=== PATIENT | male | born 1990 | race Caucasian/White ===

== ENCOUNTER 2017-01-24 12:17 | Emergency (ER) | payer SELFPAY ==
[2017-01-24] MEDS ORDERED: LIDO:MAALOX 1:1 20 ML SINGLE DOSE ONE (12:40)
[2017-01-24] MEDS ORDERED: FAMO40TA4 PO (12:42)
--- NOTE | 2017-01-24 12:51 | ED.ADGEN ---
Past History Past Medical History: No Pertinent History Past Surgical History: No Surgical History Alcohol Use: Occasionally Drug Use: None Adult General HPI HPI Patient is a 6-year-old man, with no significant past medical history, who presents to the emergency department with complaint of epigastric and left upper abdominal pain, associated with belching, radiation up into the chest, and sore throat over the past 4 days. Patient states pain is pressure-like, and he will feel it move and a burning sensation up his throat, states it is worse when he lies down at night and when he gets up in the morning. Described as a cramping and burning sensation, states he does wake in the morning with a bad taste in his mouth. He states however that it does occur all day, does not appear to be affected by eating or drinking. He describes his diet is "okay". He denies any shortness of breath, or other chest pain, denies any weakness, numbness, tingling, rashes, fevers, chills, rhinorrhea, ear pain, headache, sick contacts or exposures. Denies any ingestions, no drug or alcohol use, he does smoke about half a pack of cigarettes daily. Denies any injuries. Patient is not experiencing any discomfort currently. Review of Systems Review of Systems Constitutional: Denies fever or chills [] Eyes: Denies change in visual acuity, redness, or eye pain [] HENT: Denies nasal congestion or sore throat [] Respiratory: Denies cough or shortness of breath [] Cardiovascular: No additional information not addressed in HPI [] GI: Denies nausea, vomiting, bloody stools or diarrhea. Epigastric and lower quadrant abdominal pain associated with sore throat, occasional belching, and "water brash". [] : Denies dysuria or hematuria [] Musculoskeletal: Denies back pain or joint pain [] Integument: Denies rash or skin lesions [] Neurologic: Denies headache, focal weakness or sensory changes [] Endocrine: Denies polyuria or polydipsia [] Current Medications Current Medications Current Medications Medications (Trade) Dose Ordered Sig/Yarelis Start Time Stop Time Status Last Admin Dose Admin Multi-Ingredient Mouthwash/Gargle (Gi Cocktail) 20 ml STK-MED ONCE 01/24/17 12:40 01/24/17 12:41 DC Allergies Allergies Allergies Coded Allergies Type Severity Reaction Last Updated Verified No Known Drug Allergies 07/03/14 No Physical Exam Physical Exam Constitutional: Well developed, well nourished, no acute distress, non-toxic appearance. [] HENT: Normocephalic, atraumatic, bilateral external ears normal, oropharynx moist, patient with mildly injected oropharynx, no lesions, mucosa is otherwise unremarkable, no oral exudates, nose normal. [] Eyes: PERRLA, EOMI, conjunctiva normal, no discharge. [] Neck: Normal range of motion, no tenderness, supple, no stridor. [] Cardiovascular:Heart rate regular rhythm, no murmur, S1, S2, rubs or gallops. [] Lungs & Thorax: Bilateral breath sounds clear to auscultation, no wheezing, rhonchi, rales. No chest wall crepitus or tenderness. [] Abdomen: Bowel sounds normal, soft, mild tenderness to palpation in the epigastric region, patient localizes pain in this area, negative Yadav sign, no right upper quadrant or lower quadrant tenderness, no rebound, rigidity, no guarding, no masses, no pulsatile masses. [] Skin: Warm, dry, no erythema, no rash. [] Back: No tenderness, no CVA tenderness. [] Extremities: No tenderness, no cyanosis, no clubbing, ROM intact, no edema. [] Neurologic: Alert and oriented X 3, normal motor function, normal sensory function, no focal deficits noted. [] Psychologic: Affect normal, judgement normal, mood normal. [] Current Patient Data Vital Signs Vital Signs Date Time Temp Pulse Resp B/P (MAP) Pulse Ox O2 Delivery O2 Flow Rate FiO2 01/24/17 12:20 98.3 64 16 96 Room Air Lab Results Laboratory Tests Test 01/24/17 12:45 Group A Streptococcus Rapid Negative (NEGATIVE) EKG EKG EC: Sinus rhythm, heart rate 60 beats/minute, left axis deviation, QTC of 354, ME of 134, QRS of 88, contours are consistent with age and body habitus , no ST elevations or depressions, no prior for comparison, as interpreted by me.[] Radiology/Procedures Radiology/Procedures Acute abdominal series: 3 view: Normal cardiopulmonary silhouette, no infiltrates, no effusions, no pneumothorax, no soft tissue or bony abnormality is identified. No free air. Patient was stool and bowel gas throughout, no air- fluid levels, no dilatation or evidence of obstruction. As interpreted by me. Course & Med Decision Making Course & Med Decision Making Pertinent Labs and Imaging studies reviewed. (See chart for details) Patient's history and examination is consistent with gastroesophageal reflux disease, including symptoms of water brash and esophagitis. I did discuss this with patient, he is concerned about strep throat, so we did obtain a strep swab although there is no evidence of bacterial infection. ECG also obtained due to patient's complaint of burning chest pain, which not reveal any acutely concerning findings. Patient was treated with a GI cocktail in the emergency department. On reevaluation, patient states that he is feeling better, strep throat was negative, imaging unremarkable, ECG none concerning, I reiterated with the patient that his evaluation is consistent with GERD esophagitis. Patient given dietary instructions also prescription for famotidine, also given a list of available providers in the area to establish general medical care and follow-up. We did discuss concerning symptoms that would prompt return, patient voices understanding and agreement with discharge instructions, plan and precautions. Patient discharged home in stable condition with plan as above. Final Impression Final Impression [] Problems: Dragon Disclaimer Dragon Disclaimer This electronic medical record was generated, in whole or in part, using a voice recognition dictation system. Departure: Impression: Primary Impression: GERD (gastroesophageal reflux disease) Disposition: 01 HOME, SELF-CARE Condition: IMPROVED Scripts Famotidine (FAMOTIDINE) 40 Mg Tablet 1 TAB PO DAILY, #15 TAB 0 Refills Prov: INDIGO OBRIEN DO 01/24/17 INDIGO OBRIEN DO Jan 24, 2017 12:51
[2017-01-24] MEDS ORDERED: LIDO:MAALOX 1:1 20 ML SINGLE DOSE PO ONE (13:00)
[2017-01-24 13:30] VITALS: BP 145/84
--- NOTE | 2017-01-24 13:46 | RAD ---
Chest, 2 views, 01/24/2017: History: Epigastric and chest pain The heart size and pulmonary vascularity are normal. No pulmonary infiltrates are seen. There is no evidence of pleural fluid. IMPRESSION: No acute cardiopulmonary abnormality is detected. Abdomen, 2 views, 01/24/2017: Gas is present in large and small bowel without significant bowel distention. There are a few small scattered air-fluid levels. No free air is seen in the abdomen. There is no evidence of organomegaly or abnormal abdominal calcification. IMPRESSION: 1. Small scattered air-fluid levels may be due to fluid in the colon or a mild ileus. 2. The abdomen is otherwise unremarkable.
--- NOTE | 2017-01-24 16:48 | EKG ---
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
== END 2017-01-24 13:30 | disposition home or self-care (01) ==
LOC: ER 12:17
DX: K21.9 Gastro-esophageal reflux disease without esophagitis (principal)
CPT/HCPCS: 71020; 74020; 87070; 87880; 93005; 99285-25

== ENCOUNTER 2017-03-24 19:24 | Emergency (ER) | payer SELFPAY ==
[~2017-03-24] VITALS: Ht 160 cm; Wt 75.9 kg
[~2017-03-24 19:24] MED LIST: FAMO40TA4 PO
[2017-03-24] MEDS ORDERED: ASPIRIN 81 MG TAB.CHEW PO ONE (20:00)
--- NOTE | 2017-03-24 20:08 | PHYS DOC ---
General Chief Complaint: CHEST PAIN Stated Complaint: cp Time Seen by MD: 19:37 Source: patient, EMS, old records Exam Limitations: no limitations Problems: History of Present Illness Initial Comments Patient is a 26-year-old male brought to the ED by EMS with complaint of chest pain. EMS reports that on arrival they found the patient to be very anxious and hyperventilating with respiratory rate of 30/m. He was complaining of dyspnea and tingling and numbness in his fingers. They gave aspirin en route and caution with breathing and on arrival the extremity symptoms had stopped but the patient is still anxious complaining of chest tightness. Patient states that he's had anterior chest pain for the past 2-3 days. He's had some shortness of breath no nausea vomiting diaphoresis arm or neck symptoms. He has past medical history of GERD and states current symptoms are not similar to prior GERD symptoms. Patient also has reported history of methamphetamine use in the past but he denies any recent use. On arrival the patient has normal heart rate no tachycardia Timing/Duration: other (2-3 days) Severity: moderate (vital HR) Modifying Factors: improves with other Associated Symptoms: chest pain, shortness of breath Allergies: Coded Allergies: No Known Drug Allergies (Unverified , 07/03/14) Past Medical History Medical History: GERD Surgical History: noncontributory Psychosocial History: anxiety Social History Smoker: non-smoker Alcohol: none Drugs: none Review of Systems Constitutional: denies chills, denies diaphoresis, denies fever, denies malaise Respiratory: cough, denies shortness of breath, denies wheezing Cardiovascular: see HPI Gastrointestinal: denies abdominal pain, denies nausea, denies vomiting Musculoskeletal: denies back pain, denies joint swelling, denies neck pain Psychiatric/Neurological: denies headache, denies numbness, denies paresthesia Physical Exam General Appearance: moderate distress (anxious and hyperventilating on arrival) Eyes: bilateral eye normal inspection, bilateral eye PERRL, bilateral eye EOMI Ear, Nose, Throat: hearing grossly normal, normal ENT inspection, normal pharynx Neck: non-tender, supple Respiratory: chest non-tender, normal breath sounds, no respiratory distress Cardiovascular: normal peripheral pulses, regular rate, rhythm Gastrointestinal: non tender, soft Back: no CVA tenderness, no vertebral tenderness Extremities: normal inspection, no calf tenderness 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 Interpreted by Dr. Kumar. Chest AP: No acute cardiopulmonary process interpreted by Dr. Kumar. Potassium 3.3 oral replacement given otherwise ED workup unremarkable. Patient's symptoms resolved very shortly after arrival once he settled down in the exam room. No emergent condition is suspected or noted in the ED patient will be discharged home he is agreeable. Departure Time of Disposition: 21:06 Disposition: 01 HOME, SELF-CARE Diagnosis: hypokalemia, anxiety Condition: IMPROVED Patient Instructions: Anxiety and Panic Attacks, Nydq-mi-Xood, Hypokalemia- Brief Additional Instructions: Please review the patient education materials given by ED staff. Work excuse tomorrow. Increase leafy green vegetables and banana intake. Prescription: KCl 20 mEq quantity 2 Follow-up with a doctor Wednesday for recheck of symptoms and serum potassium. Return to ED with new or changing symptoms. VU KUMAR DO Mar 24, 2017 20:08
[2017-03-24 20:10] LABS: BASO # 0.1 x10^3/uL (0.0-0.2); BASO % 1 % (0-3); EOS # 0.2 x10^3/uL (0.0-0.7); EOS % 3 % (0-3); HEMATOCRIT 47.8 % (39.0-53.0); HEMOGLOBIN 16.7 g/dL (13.0-17.5); LYMPH % 32 % (24-48); MEAN CORPUSCULAR HEMOGLOBIN 33 pg (25-35); MEAN CORPUSCULAR HGB CONC 35 g/dL (31-37); MEAN CORPUSCULAR VOLUME 94 fL (79-100); MONO # 0.5 x10^3/uL (0.0-1.1); MONO % 6 % (0-9); NEUT # 5.5 x10^3uL (1.8-7.7); NEUT % 58 % (31-73); PLATELET COUNT 273 x10^3/uL (140-400); RED BLOOD COUNT 5.12 x10^6/uL (4.30-5.70); RED CELL DISTRIBUTION WIDTH 13.9 % (11.5-14.5); WHITE BLOOD COUNT 9.4 x10^3/uL (4.0-11.0)
[2017-03-24 20:26] LABS: ALBUMIN 4.5 g/dL (3.4-5.0); ALBUMIN/GLOBULIN RATIO 1.2 (1.0-1.7); CALCIUM 9.9 mg/dL (8.5-10.1); GFR 90.3; POTASSIUM 3.3 mmol/L (3.5-5.1); TOTAL BILIRUBIN 0.3 mg/dL (0.2-1.0); TOTAL PROTEIN 8.3 g/dL (6.4-8.2)
[2017-03-24 20:44] LABS: CLARITY,URINE CLEAR; COLOR,URINE STRAW
[2017-03-24 20:45] LABS: BACTERIA,URINE 0 /HPF (0-FEW); BILIRUBIN,URINE NEG (NEG); GLUCOSE,URINE NEG (NEG); NITRITE,URINE NEG (NEG); RBC,URINE 0 /HPF (0-2); SQUAMOUS EPITHELIAL CELL,UR OCC /LPF; UROBILINOGEN,URINE 0.2 mg/dL (0.2 mg/dL); WBC,URINE OCC /HPF (0-4)
[2017-03-24] MEDS ORDERED: POTASSIUM CHLORIDE 20 MEQ/15 ML ORAL LIQUID. PO ONE (20:45)
[2017-03-24 20:57] LABS: BARBITURATES NEG (NEG); BENZODIAZEPINES NEG (NEG); CANNABINOIDS NEG (NEG); COCAINE NEG (NEG); METHADONE NEG (NEG); OPIATES NEG (NEG); PHENCYCLIDINE NEG (NEG)
[2017-03-24 20:58] LABS: AMPHETAMINE/METHAMPHETAMINE NEG (NEG)
[2017-03-24] MEDS ORDERED: POTA20TA82 PO (21:08)
[2017-03-24 21:14] VITALS: BP 117/48
--- NOTE | 2017-03-24 22:16 | EKG ---
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
--- NOTE | 2017-03-25 07:18 | RAD ---
Portable AP view CXR: Clinical indications: Chest pain tonight. Comparison: January 24, 2017 Findings: No acute lung infiltrate or pleural effusion or pulmonary edema or lung mass or pneumothorax is seen. The heart size, pulmonary vasculature, mediastinum and both hamilton are unremarkable. Impression: No acute radiographic abnormality is seen.
== END 2017-03-24 21:25 | disposition home or self-care (01) ==
LOC: ER 19:24
DX: F41.9 Anxiety disorder, unspecified (principal); E87.6 Hypokalemia; K21.9 Gastro-esophageal reflux disease without esophagitis
CPT/HCPCS: 36415; 71010; 80053; 80307; 81001; 82550; 84484; 85025; 93005; 99285-25; G0479

== ENCOUNTER 2017-03-30 19:27 | Emergency (ER) | payer SELFPAY ==
[~2017-03-30] VITALS: Ht 160 cm; Wt 75.9 kg
[~2017-03-30 19:27] MED LIST changes: +POTA20TA82 PO
[2017-03-30] MEDS ORDERED: KETOROLAC 30 MG/ML VIAL. IV ONE (20:15)
[2017-03-30] MEDS ORDERED: IOHEXOL 300 MG/ML 75 ML VIAL. IV ONE (20:15)
[2017-03-30 20:52] LABS: BASO # 0.1 x10^3/uL (0.0-0.2); BASO % 1 % (0-3); EOS # 0.1 x10^3/uL (0.0-0.7); EOS % 1 % (0-3); HEMATOCRIT 44.4 % (39.0-53.0); HEMOGLOBIN 15.3 g/dL (13.0-17.5); LYMPH # 2.7 x10^3/uL (1.0-4.8); LYMPH % 28 % (24-48); MEAN CORPUSCULAR HEMOGLOBIN 32 pg (25-35); MEAN CORPUSCULAR HGB CONC 35 g/dL (31-37); MEAN CORPUSCULAR VOLUME 94 fL (79-100); MONO # 0.5 x10^3/uL (0.0-1.1); MONO % 5 % (0-9); NEUT # 6.4 x10^3uL (1.8-7.7); NEUT % 65 % (31-73); PLATELET COUNT 253 x10^3/uL (140-400); RED BLOOD COUNT 4.74 x10^6/uL (4.30-5.70); RED CELL DISTRIBUTION WIDTH 13.6 % (11.5-14.5); WHITE BLOOD COUNT 9.8 x10^3/uL (4.0-11.0)
[2017-03-30 21:02] LABS: ALBUMIN 4.2 g/dL (3.4-5.0); ALBUMIN/GLOBULIN RATIO 1.2 (1.0-1.7); CALCIUM 8.9 mg/dL (8.5-10.1); GFR 90.3; POTASSIUM 3.8 mmol/L (3.5-5.1); TOTAL BILIRUBIN 0.3 mg/dL (0.2-1.0); TOTAL PROTEIN 7.7 g/dL (6.4-8.2)
--- NOTE | 2017-03-30 21:03 | RAD ---
CT ABD PELV W/ IV CONTRST ONLY dated 03/30/2017 8:37 PM Indication: Left upper quadrant pain.Gave Omni 300 75ml IV - tolerated well
LUQ abdominal pain
No abdominal sx in past and no prior medical hx. Comparison: No comparison is available. Technique: Contiguous axial imaging of the abdomen and pelvis performed after the administration of 75 cc Omnipaque 300. One or more of the following individualized dose reduction techniques were utilized for this examination: 1. Automated exposure control 2. Adjustment of the mA and/or kV according to patient size 3. Use of iterative reconstruction technique Findings: Limited images of lung bases are clear. Heart size within normal limits. No pleural or pericardial effusion. There is a vague low-density focus within the right lobe liver on image 6 that measures about 7 mm in size, indeterminate. Liver is otherwise homogeneous. No biliary ductal dilatation. Gallbladder unremarkable. Spleen is normal in size. Pancreas, adrenal glands and kidneys are unremarkable. No hydronephrosis. Unopacified GI tract is normal in caliber and contour. No focal bowel wall thickening. The appendix is normal in caliber. No ascites or lymphadenopathy. There are a few scattered diverticula within the distal colon. Images of pelvis show nondistended urinary bladder. Prostate gland normal in size. No free pelvic fluid or pelvic lymphadenopathy. Bone windows show no acute findings. IMPRESSION: 1. No acute abnormality of abdomen or pelvis. Normal appendix. 2. Small vague low-density lesion within the right lobe liver, indeterminate. 3. Diverticulosis with no evidence of acute diverticulitis. Electronically signed by: Umer Hernandez MD (03/30/2017 8:59 PM) [facility]
[2017-03-30 22:00] LABS: BACTERIA,URINE 0 /HPF (0-FEW); BILIRUBIN,URINE NEG (NEG); CLARITY,URINE CLEAR; COLOR,URINE YELLOW; GLUCOSE,URINE NEG (NEG); NITRITE,URINE NEG (NEG); RBC,URINE RARE /HPF (0-2); UROBILINOGEN,URINE 1 mg/dL (0.2 mg/dL); WBC,URINE RARE /HPF (0-4)
[2017-03-30 22:01] LABS: SQUAMOUS EPITHELIAL CELL,UR OCC /LPF
--- NOTE | 2017-03-30 22:03 | PHYS DOC ---
Past History Past Medical History: GERD Past Surgical History: Other Alcohol Use: Occasionally Drug Use: None Adult General Chief Complaint Chief Complaint: ABDOMINAL PAIN HPI HPI 86-year-old male with a history of gastroesophageal reflux now complaining of abdominal pain times several days. Patient has no history of chronic abdominal problems. He has no vomiting but does report some loose stool. No fevers chills sweats or shaking chills. The pain is intermittent with complete resolution between episodes. It's not worse with movement area normal bladder habits Review of Systems Review of Systems Constitutional: Denies fever or chills [] Eyes: Denies change in visual acuity, redness, or eye pain [] HENT: Denies nasal congestion or sore throat [] Respiratory: Denies cough or shortness of breath [] Cardiovascular: No additional information not addressed in HPI [] GI: Denies abdominal pain, nausea, vomiting, bloody stools or diarrhea [] : Denies dysuria or hematuria [] Musculoskeletal: Denies back pain or joint pain [] Integument: Denies rash or skin lesions [] Neurologic: Denies headache, focal weakness or sensory changes [] Endocrine: Denies polyuria or polydipsia [] All other systems were reviewed and found to be within normal limits, except as documented in this note. Current Medications Current Medications Current Medications Medications (Trade) Dose Ordered Sig/Yarelis Start Time Stop Time Status Last Admin Dose Admin Iohexol (Omnipaque 300 Mg/ml) 75 ml 1X ONCE 03/30/17 20:15 03/30/17 20:16 DC 03/30/17 20:35 75 ML Ketorolac Tromethamine (Toradol) 30 mg 1X ONCE 03/30/17 20:15 03/30/17 20:16 DC 03/30/17 21:01 30 MG Allergies Allergies Allergies Coded Allergies Type Severity Reaction Last Updated Verified No Known Drug Allergies 03/30/17 No Physical Exam Physical Exam Constitutional: Well developed, well nourished, no acute distress, non-toxic appearance. [] HENT: Normocephalic, atraumatic, bilateral external ears normal, oropharynx moist, no oral exudates, nose normal. [] Eyes: PERRLA, EOMI, conjunctiva normal, no discharge. [] Neck: Normal range of motion, no tenderness, supple, no stridor. [] Cardiovascular:Heart rate regular rhythm, no murmur [] Lungs & Thorax: Bilateral breath sounds clear to auscultation [] Abdomen: Bowel sounds normal, soft, no tenderness, no masses, no pulsatile masses. [] Skin: Warm, dry, no erythema, no rash. [] Back: No tenderness, no CVA tenderness. [] Extremities: No tenderness, no cyanosis, no clubbing, ROM intact, no edema. [] Neurologic: Alert and oriented X 3, normal motor function, normal sensory function, no focal deficits noted. [] Psychologic: Affect normal, judgement normal, mood normal. [] Current Patient Data Vital Signs Vital Signs Date Time Temp Pulse Resp B/P (MAP) Pulse Ox O2 Delivery O2 Flow Rate FiO2 03/30/17 19:48 98.2 76 20 95 Room Air Lab Results Laboratory Tests Test 03/30/17 20:31 White Blood Count 9.8 x10^3/uL (4.0-11.0) Red Blood Count 4.74 x10^6/uL (4.30-5.70) Hemoglobin 15.3 g/dL (13.0-17.5) Hematocrit 44.4 % (39.0-53.0) Mean Corpuscular Volume 94 fL (79-100) Mean Corpuscular Hemoglobin 32 pg (25-35) Mean Corpuscular Hemoglobin Concent 35 g/dL (31-37) Red Cell Distribution Width 13.6 % (11.5-14.5) Platelet Count 253 x10^3/uL (140-400) Neutrophils (%) (Auto) 65 % (31-73) Lymphocytes (%) (Auto) 28 % (24-48) Monocytes (%) (Auto) 5 % (0-9) Eosinophils (%) (Auto) 1 % (0-3) Basophils (%) (Auto) 1 % (0-3) Neutrophils # (Auto) 6.4 x10^3uL (1.8-7.7) Lymphocytes # (Auto) 2.7 x10^3/uL (1.0-4.8) Monocytes # (Auto) 0.5 x10^3/uL (0.0-1.1) Eosinophils # (Auto) 0.1 x10^3/uL (0.0-0.7) Basophils # (Auto) 0.1 x10^3/uL (0.0-0.2) Sodium Level 141 mmol/L (136-145) Potassium Level 3.8 mmol/L (3.5-5.1) Chloride Level 104 mmol/L (98-107) Carbon Dioxide Level 29 mmol/L (21-32) Anion Gap 8 (6-14) Blood Urea Nitrogen 16 mg/dL (8-26) Creatinine 1.0 mg/dL (0.7-1.3) Estimated GFR (Cockcroft-Gault) 90.3 BUN/Creatinine Ratio 16 (6-20) Glucose Level 89 mg/dL (70-99) Calcium Level 8.9 mg/dL (8.5-10.1) Total Bilirubin 0.3 mg/dL (0.2-1.0) Aspartate Amino Transferase (AST) 15 U/L (15-37) Alanine Aminotransferase (ALT) 29 U/L (16-63) Alkaline Phosphatase 79 U/L (46-116) Total Protein 7.7 g/dL (6.4-8.2) Albumin 4.2 g/dL (3.4-5.0) Albumin/Globulin Ratio 1.2 (1.0-1.7) Lipase 74 U/L (73-393) EKG EKG [] Radiology/Procedures Radiology/Procedures [] Course & Med Decision Making Course & Med Decision Making Pertinent Labs and Imaging studies reviewed. (See chart for details) Well-appearing patient with a benign exam trace left upper quadrant tenderness which is variable. Normal bowel sounds no mass or megaly. Labs unremarkable and CT with incidental findings of vague right liver abnormality possibly consistent with mass as well as diverticulosis. Discussed at length what diverticulosis is and the patient should remember that this is a diagnosis that he has. Regarding right liver mass or possible mass, discussed with patient at length indication for reevaluation by his primary care doctor review with the results and referral for definitive imaging to rule out the less likely possibility of a concerning etiology for the mass including liver cancer. No further workup or treatment indicated at this time patient agrees with outpatient follow-up and strict return precautions given [] Dragon Disclaimer Dragon Disclaimer This electronic medical record was generated, in whole or in part, using a voice recognition dictation system. Departure Departure: Impression: Primary Impression: Abdominal pain Additional Impressions: Diverticulosis Mass of right lobe of liver Disposition: HOME, SELF-CARE Condition: GOOD Referrals: PCP,NO (PCP) Patient Instructions: Abdominal Pain (Nonspecific), Diverticulosis Additional Instructions: It is not clear what the cause of your abdominal pain was today. Your labs were normal. The CAT scan showed no emergency findings. There was an incidental finding of diverticulosis which is a benign condition as we discussed. It is an important diagnosis for you to be aware that you have as there is always the possibility of it developing into diverticulitis, which is an infection or inflammation of a diverticuli. There was also an incidental finding of a vague area in your right lobe of your liver that could represent a mass. It is common for people have benign liver masses but it will require follow-up with your doctor to discuss this finding and arrange reimaging to rule out something more concerning like liver cancer. Follow-up with your doctor in 1-2 days and return immediately for new severe or worsening symptoms. Problem Qualifiers CHRISTOS PAGE MD Mar 30, 2017 22:03
[2017-03-30 22:15] VITALS: BP 103/56
== END 2017-03-30 22:15 | disposition home or self-care (01) ==
LOC: ER 19:27
DX: K57.90 Diverticulosis of intestine, part unspecified, without perforation or abscess without bleeding (principal); R16.0 Hepatomegaly, not elsewhere classified; K21.9 Gastro-esophageal reflux disease without esophagitis
CPT/HCPCS: 36415; 74177; 80053; 81001; 83690; 85025; 96374; 99285; J1885; Q9967

== ENCOUNTER 2017-05-04 18:46 | Emergency (ER) | payer SELFPAY ==
[~2017-05-04] VITALS: Ht 167.6 cm; Wt 79.4 kg
[2017-05-04 18:52] VITALS: BP 139/53
[2017-05-04] MEDS: IBUPROFEN 600 MG TABLET. PO ONE (19:00)
[2017-05-04] MEDS: traMADol 50 MG TABLET PO ONE (20:00)
[2017-05-04] MEDS ORDERED: TRAM-48 PO (20:05)
--- NOTE | 2017-05-04 20:06 | PHYS DOC ---
Past History Past Medical History: Diverticulitis, GERD Past Surgical History: Other Alcohol Use: Occasionally Drug Use: None Adult General Chief Complaint Chief Complaint: FOOT INJURY PAIN HPI HPI Patient is a 26-year-old gentleman who presents here today complaining of pain to his right foot and ankle. 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 Patient denies any acute trauma. Patient reports he was doing fine until he was on his way home when he starts experiencing severe pain to his right foot and ankle. Patient has been taking ibuprofen at home without any significant relief in his discomfort so he came to the ER for further evaluation and assistance with pain. Patient denies any other symptomatology. Patient has any fevers shakes chills nausea vomiting diarrhea chest pain terns of breath cough cold or dysuria. Patient reports she has no past medical history. No hypertension diabetes lung liver or kidney p problems. Patient reports he does smoke, occasional alcohol, no drugs and no known drug allergies. Review of systems: Constitutional: Denies fever or chills Eyes: Denies change in visual acuity, redness, or eye pain HENT: Denies nasal congestion or sore throat Respiratory: Denies cough or shortness of breath All other systems were reviewed and found to be within normal limits, except as documented in this note. Physical exam: Constitutional: Well developed, well nourished, no acute distress, non-toxic appearance. HENT: Normocephalic, atraumatic, bilateral external ears normal, nose normal. Eyes: PERRLA, EOMI, conjunctiva normal, no discharge. Neck: Normal range of motion, no tenderness, supple, no stridor. Cardiovascular: Heart rate regular rhythm, Lungs & Thorax: Bilateral breath sounds clear to auscultation Abdomen: No abdominal distention. Skin: Warm, dry, no erythema, no rash. Back: Normal spinal curvature Extremities:no cyanosis, no clubbing, ROM intact, no edema. Neurologic: Alert and oriented X 3, normal motor function, normal sensory function, no focal deficits noted. Psychologic: Affect normal, judgement normal, mood normal. Patient's ER physical exam was most remarkable: Tenderness to palpation diffusely to his right foot and ankle. There is no deformity visible. There is no soft tissue swelling. Patient's pulses are equal bilaterally and bounding. Patient is excellent capillary refill. Sensation is intact. Motor function is intact. Patient's tenderness palpation with any slight caressing or touching of anywhere in his foot. Foot and ankle x-ray right as interpreted by ER physician reveals: No acute fracture dislocation. No evidence of foreign body. No soft tissue swelling. Labs reviewed: Assessment and plan: 1. 26-year-old gentleman with right foot pain likely secondary to overuse. 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 Patient's x-rays are normal. Patient be discharged home with pain medicines, Vinod wrap, crutches and instructions to rest and elevate. Patient will require note for work. Current Medications Current Medications Current Medications Medications (Trade) Dose Ordered Sig/Yarelis Start Time Stop Time Status Last Admin Dose Admin Ibuprofen (Motrin) 600 mg 1X ONCE 05/04/17 19:00 05/04/17 19:01 DC 05/04/17 19:00 600 MG Allergies Allergies Allergies Coded Allergies Type Severity Reaction Last Updated Verified No Known Drug Allergies 03/30/17 No Current Patient Data Vital Signs Vital Signs Date Time Temp Pulse Resp B/P (MAP) Pulse Ox O2 Delivery O2 Flow Rate FiO2 05/04/17 18:52 97.9 102 18 97 Room Air EKG EKG [] Radiology/Procedures Radiology/Procedures [] Course & Med Decision Making Course & Med Decision Making Pertinent Labs and Imaging studies reviewed. (See chart for details) [] Dragon Disclaimer Dragon Disclaimer This electronic medical record was generated, in whole or in part, using a voice recognition dictation system. Departure Departure: Impression: Primary Impression: Foot pain Additional Impression: Overuse syndrome of foot Disposition: HOME, SELF-CARE Condition: IMPROVED Referrals: PCP,NO (PCP) Patient Instructions: Crutch Use, Foot Sprain Scripts Tramadol Hcl (ULTRAM) 50 Mg Tablet 50 MG PO PRN Q6HRS Y for PAIN, #20 TAB Prov: OLIVIA ROMERO MD 05/04/17 Problem Qualifiers OLIVIA ROMERO MD May 04, 2017 20:06
--- NOTE | 2017-05-05 07:56 | RAD ---
3 views right foot 05/04/2017 8:51 PM Indication: ANKLE AND FOOT PAIN Comparison: None Findings: There is no fracture or dislocation identified. Articular surfaces are uninterrupted. Soft tissues are unremarkable. Impression: No evidence of acute osseous abnormality
--- NOTE | 2017-05-05 08:17 | RAD ---
Three views ANKLE RIGHT 3V Clinical History: ANKLE AND FOOT PAIN Comparison: None. Findings: The visualized osseous structures appear normal. Impression: No acute findings.
== END 2017-05-04 18:52 | disposition home or self-care (01) ==
LOC: ER 18:46
DX: M70.871 Other soft tissue disorders related to use, overuse and pressure, right ankle and foot (principal); Y93.89 Activity, other specified; K21.9 Gastro-esophageal reflux disease without esophagitis
CPT/HCPCS: 73610; 73630; 99284

== ENCOUNTER 2018-02-18 00:25 | Emergency (ER) | payer SELFPAY ==
[~2018-02-18] VITALS: Ht 157.5 cm; Wt 78.3 kg
[~2018-02-18 00:25] MED LIST changes: +TRAM-48 PO
--- NOTE | 2018-02-18 00:32 | ED.ADGEN ---
Past History Past Medical History: Asthma, Diverticulitis, GERD Past Surgical History: Other Alcohol Use: Occasionally Drug Use: None Adult General Chief Complaint Chief Complaint ".. I was walking home from work and got this bad chest pain.... right here in the center.. I ve had it about 40 minutes now.. " HPI HPI Patient is a 27 year old male who presents with above hx and complaints of epigastric and central chest pain. Pt. complaints of some wheezing tonight. Pt pain is non-radiating. Pt. did drink two beers tonight. Has hx GERD, diverticulitis and Asthma. Does smoke. No hx travel or specific ill contacts. Pt denies illicit drug use. No prior cardiac hx. Pt. does not follow with a primary care. Pt. works at [employer] Patient did receive aspirin by paramedics prior to arrival. Pt. seen in ED on 07/03/2014, 03/24/17, , with EKGs.. No acute changes as comparison to prior EKG's. Review of Systems Review of Systems Constitutional: Denies fever or chills [] Eyes: Denies change in visual acuity, redness, or eye pain [] HENT: Denies nasal congestion or sore throat [] Respiratory: Denies cough or shortness of breath [] Cardiovascular: No additional information not addressed in HPI [] GI: Denies abdominal pain, nausea, vomiting, bloody stools or diarrhea [] : Denies dysuria or hematuria [] Musculoskeletal: Denies back pain or joint pain [] Integument: Denies rash or skin lesions [] Neurologic: Denies headache, focal weakness or sensory changes [] Endocrine: Denies polyuria or polydipsia [] All other systems were reviewed and found to be within normal limits, except as documented in this note. Family History Family History Cardiac history unknown family members because he is adopted Current Medications Current Medications Current Medications Medications (Trade) Dose Ordered Sig/Yarelis Start Time Stop Time Status Last Admin Dose Admin Albuterol Sulfate (Ventolin Hfa Inhaler) 2 puff 1X ONCE 02/18/18 01:00 02/18/18 01:01 DC 02/18/18 01:03 2 PUFF Famotidine (Pepcid) 20 mg 1X ONCE 02/18/18 01:00 02/18/18 01:01 DC 02/18/18 01:00 20 MG Folic Acid (FOLIC ACID SYRINGE for ER) 5 mg STK-MED ONCE 02/18/18 00:53 02/18/18 00:54 DC Magnesium Hydroxide (Milk Of Magnesia) 2,400 mg 1X ONCE 02/18/18 01:00 02/18/18 01:01 DC 02/18/18 01:03 2,400 MG Multivitamins/ Minerals (Infuvite Adult) 10 ml STK-MED ONCE 02/18/18 00:53 02/18/18 00:54 DC Multivitamins/ Minerals 10 ml/ Folic Acid 1 mg/ Thiamine HCl 100 mg/Lactated Ringer's 1,011.2 ml @ 1,011.2 mls/hr 1X ONCE 02/18/18 01:00 02/18/18 01:59 DC 02/18/18 01:05 1,011.2 MLS/HR Thiamine HCl (Thiamine Vial) 200 mg STK-MED ONCE 02/18/18 00:53 02/18/18 00:54 DC See nursing for home meds Allergies Allergies Allergies Coded Allergies Type Severity Reaction Last Updated Verified No Known Drug Allergies 03/30/17 No Physical Exam Physical Exam Constitutional: Moderate distress, non-toxic appearance. [] HENT: Normocephalic, atraumatic, bilateral external ears normal, oropharynx moist, no oral exudates, nose normal. []Well trimmed wong. Eyes: PERRLA, EOMI, conjunctiva normal, no discharge. [] Neck: Normal range of motion, no tenderness, supple, no stridor. [] Cardiovascular: Tachycardia Heart rate regular rhythm, no murmur [] Lungs & Thorax: Bilateral breath sounds equal at apexes scattered wheezes auscultation [Has]some sternal tenderness on palpation Abdomen: Bowel sounds normal, soft, no tenderness, no masses, no pulsatile masses. [] Skin: Warm, dry, no erythema, no rash. [] Back: No tenderness, no CVA tenderness. [] Extremities: No tenderness, no cyanosis, no clubbing, ROM intact, no edema. [] No cording noted. Neurologic: Alert and oriented X 3, normal motor function, normal sensory function, no focal deficits noted. [] Psychologic: Affect anxious, judgement normal, mood normal. [] Current Patient Data Vital Signs Vital Signs Date Time Temp Pulse Resp B/P (MAP) Pulse Ox O2 Delivery O2 Flow Rate FiO2 02/18/18 03:33 72 17 114/47 (69) 95 Room Air 02/18/18 00:25 98.8 Lab Results Laboratory Tests Test 02/18/18 00:37 02/18/18 01:58 02/18/18 02:56 White Blood Count 6.9 x10^3/uL (4.0-11.0) Red Blood Count 4.89 x10^6/uL (4.30-5.70) Hemoglobin 15.8 g/dL (13.0-17.5) Hematocrit 46.1 % (39.0-53.0) Mean Corpuscular Volume 95 fL (79-100) Mean Corpuscular Hemoglobin 32 pg (25-35) Mean Corpuscular Hemoglobin Concent 34 g/dL (31-37) Red Cell Distribution Width 13.5 % (11.5-14.5) Platelet Count 246 x10^3/uL (140-400) Neutrophils (%) (Auto) 67 % (31-73) Lymphocytes (%) (Auto) 25 % (24-48) Monocytes (%) (Auto) 4 % (0-9) Eosinophils (%) (Auto) 3 % (0-3) Basophils (%) (Auto) 1 % (0-3) Neutrophils # (Auto) 4.6 x10^3uL (1.8-7.7) Lymphocytes # (Auto) 1.7 x10^3/uL (1.0-4.8) Monocytes # (Auto) 0.3 x10^3/uL (0.0-1.1) Eosinophils # (Auto) 0.2 x10^3/uL (0.0-0.7) Basophils # (Auto) 0.1 x10^3/uL (0.0-0.2) Prothrombin Time 10.7 SEC (9.4-11.4) Prothrombin Time INR 1.1 (0.9-1.1) PTT 26 SEC (23-33) D-Dimer (Lola) 0.23 mg/L (0.00-0.50) Sodium Level 145 mmol/L (136-145) Potassium Level 3.5 mmol/L (3.5-5.1) Chloride Level 106 mmol/L (98-107) Carbon Dioxide Level 26 mmol/L (21-32) Anion Gap 13 (6-14) Blood Urea Nitrogen 10 mg/dL (8-26) Creatinine 1.1 mg/dL (0.7-1.3) Estimated GFR (Cockcroft-Gault) 80.3 Glucose Level 114 mg/dL (70-99) H Calcium Level 8.7 mg/dL (8.5-10.1) Magnesium Level 2.1 mg/dL (1.8-2.4) Total Bilirubin 0.2 mg/dL (0.2-1.0) Direct Bilirubin 0.1 mg/dL (0.0-0.2) Aspartate Amino Transferase (AST) 27 U/L (15-37) Alanine Aminotransferase (ALT) 43 U/L (16-63) Alkaline Phosphatase 86 U/L (46-116) Creatine Kinase 120 U/L (39-308) Troponin I Quantitative < 0.017 ng/mL (0-0.055) < 0.017 ng/mL (0-0.055) CL-Nky-X-Type Natriuretic Peptide 19 pg/mL (0-124) Total Protein 7.5 g/dL (6.4-8.2) Albumin 4.1 g/dL (3.4-5.0) Triglycerides Level 134 mg/dL (0-150) Cholesterol Level 139 mg/dL (0-200) LDL Cholesterol, Calculated 73 mg/dL (0-100) VLDL Cholesterol, Calculated 26 mg/dL (0-40) Non-HDL Cholesterol Calculated 99 mg/dL (0-129) HDL Cholesterol 40 mg/dL (40-60) Cholesterol/HDL Ratio 3.0 Lipase 81 U/L (73-393) Thyroid Stimulating Hormone (TSH) 0.892 uIU/mL (0.358-3.740) Ethyl Alcohol Level 176 mg/dL (0-10) H Urine Collection Type Void Urine Color Yellow Urine Clarity Clear Urine pH 6.5 Urine Specific [place] 1.025 Urine Protein Trace (NEG-TRACE) Urine Glucose (UA) Neg mg/dL (NEG) Urine Ketones (Stick) Trace mg/dL (NEG) Urine Blood Mod (NEG) Urine Nitrite Neg (NEG) Urine Bilirubin Neg (NEG) Urine Urobilinogen Dipstick 2 mg/dL (0.2 mg/dL) Urine Leukocyte Esterase Neg (NEG) Urine RBC 6-10 /HPF (0-2) Urine WBC Occ /HPF (0-4) Urine Squamous Epithelial Cells Few /LPF Urine Bacteria 0 /HPF (0-FEW) Urine Mucus Slight /LPF Urine Opiates Screen Neg (NEG) Urine Methadone Screen Neg (NEG) Urine Barbiturates Neg (NEG) Urine Phencyclidine Screen Neg (NEG) Urine Amphetamine/Methamphetamine Neg (NEG) Urine Benzodiazepines Screen Neg (NEG) Urine Cocaine Screen Neg (NEG) Urine Cannabinoids Screen Neg (NEG) Urine Ethyl Alcohol Pos (NEG) EKG EKG My interpretation EKG shows a sinus rhythm at 92 bpm. There is no findings of acute STEMI of contralateral changes.[] My interpretation of the EKG at 236 hours shows a sinus rhythm at 73. No acute interval change. Radiology/Procedures Radiology/Procedures My interpretation of chest x-ray shows no acute cardiopulmonary findings. Does have some basilar atelectasis with appearance of reduced lung volume. No free air under the diaphragm. Does have increased stool in right abdomen..[] Course & Med Decision Making Course & Med Decision Making Pertinent Labs and Imaging studies reviewed. (See chart for details). At time of discharge no complaints. MOM seemed to remove more of symptoms than any other of meds given. Pt. to take Zantac 150 twice a day. Avoid tobacco and etoh. Follow up with primary. Return if any concerns. Consider EGD and out pt. stress testing.. Review ED present and past evaluations and EKGs, Labs and work up with primary. Use MDI two puffs four times a day for wheezing. [] Final Impression Final Impression 1. Chest Pain 2. Epigastric Pain[] 3. Hx of Asthma 4. Hx of Tobacco Abuse 5. Hx. of GERD 6. Tobacco Use 7. Alcohol 176 8. Asthma- reactive airway Dragon Disclaimer Dragon Disclaimer This electronic medical record was generated, in whole or in part, using a voice recognition dictation system. MALACHI SWENSON MD Feb 18, 2018 00:32
[2018-02-18] MEDS ORDERED: MVI, ADULT NO.4 WITH VIT K 10 ML VIAL IV ONE (00:53)
[2018-02-18] MEDS ORDERED: THIAMINE 200 MG/2 ML VIAL. IV ONE (00:53)
[2018-02-18] MEDS ORDERED: FOLIC ACID 5 MG/ML SYRINGE for ER IV ONE (00:53)
--- NOTE | 2018-02-18 00:53 | EKG ---
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
[2018-02-18 01:00] LABS: BASO # 0.1 x10^3/uL (0.0-0.2); BASO % 1 % (0-3); EOS # 0.2 x10^3/uL (0.0-0.7); EOS % 3 % (0-3); HEMATOCRIT 46.1 % (39.0-53.0); HEMOGLOBIN 15.8 g/dL (13.0-17.5); LYMPH # 1.7 x10^3/uL (1.0-4.8); LYMPH % 25 % (24-48); MEAN CORPUSCULAR HEMOGLOBIN 32 pg (25-35); MEAN CORPUSCULAR HGB CONC 34 g/dL (31-37); MEAN CORPUSCULAR VOLUME 95 fL (79-100); MONO # 0.3 x10^3/uL (0.0-1.1); MONO % 4 % (0-9); NEUT # 4.6 x10^3uL (1.8-7.7); NEUT % 67 % (31-73); PLATELET COUNT 246 x10^3/uL (140-400); RED BLOOD COUNT 4.89 x10^6/uL (4.30-5.70); RED CELL DISTRIBUTION WIDTH 13.5 % (11.5-14.5); WHITE BLOOD COUNT 6.9 x10^3/uL (4.0-11.0)
[2018-02-18] MEDS ORDERED: FAMOTIDINE 20 MG TABLET PO ONE (01:00)
[2018-02-18] MEDS ORDERED: MVI, ADULT NO.4 WITH VIT K 10 ML, FOLIC ACID SYRINGE for ER 1 MG, THIAMINE INJ 100 MG i... IV ONE ×4 (01:00)
[2018-02-18] MEDS ORDERED: ALBUTEROL SULFATE 8GM INHALER. INH ONE (01:00)
[2018-02-18] MEDS ORDERED: MAGNESIUM HYDROXIDE 2,400 MG/30 ML ORAL.SUSP. PO ONE (01:00)
[2018-02-18 01:22] LABS: ALBUMIN 4.1 g/dL (3.4-5.0); CALCIUM 8.7 mg/dL (8.5-10.1); CREATININE 1.1 mg/dL (0.7-1.3); DIRECT BILIRUBIN 0.1 mg/dL (0.0-0.2); GFR 80.3; MAGNESIUM 2.1 mg/dL (1.8-2.4); POTASSIUM 3.5 mmol/L (3.5-5.1); TOTAL BILIRUBIN 0.2 mg/dL (0.2-1.0); TOTAL PROTEIN 7.5 g/dL (6.4-8.2)
[2018-02-18] MEDS ORDERED: RANI150T21 PO (02:12)
[2018-02-18 02:23] LABS: BACTERIA,URINE 0 /HPF (0-FEW); BILIRUBIN,URINE NEG (NEG); CLARITY,URINE CLEAR; COLOR,URINE YELLOW; GLUCOSE,URINE NEG (NEG); NITRITE,URINE NEG (NEG); SQUAMOUS EPITHELIAL CELL,UR FEW /LPF; UROBILINOGEN,URINE 2 mg/dL (0.2 mg/dL); WBC,URINE OCC /HPF (0-4)
[2018-02-18 02:24] LABS: BARBITURATES NEG (NEG); BENZODIAZEPINES NEG (NEG); CANNABINOIDS NEG (NEG); COCAINE NEG (NEG); METHADONE NEG (NEG); OPIATES NEG (NEG); PHENCYCLIDINE NEG (NEG)
[2018-02-18 02:26] LABS: AMPHETAMINE/METHAMPHETAMINE NEG (NEG)
--- NOTE | 2018-02-18 02:40 | EKG ---
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
[2018-02-18 03:33] VITALS: BP 114/47
--- NOTE | 2018-02-18 07:43 | RAD ---
Chest, 2 views, 02/18/2018: HISTORY: Chest pain, shortness of breath The depth of inspiration on the frontal view is suboptimal. The heart size and pulmonary vascularity are normal. No pulmonary infiltrate is seen. There is no evidence of pleural fluid. IMPRESSION: No acute cardiopulmonary abnormality is detected. Electronically signed by: Laith Velasquez MD (02/18/2018 7:39 AM) [facility]
[2018-02-18 13:46] LABS: THYROID STIM HORMONE (TSH) 0.892 uIU/mL (0.358-3.740)
== END 2018-02-18 03:44 | disposition home or self-care (01) ==
LOC: ER 00:25
DX: R07.89 Other chest pain (principal); R10.13 Epigastric pain; J45.909 Unspecified asthma, uncomplicated; K21.9 Gastro-esophageal reflux disease without esophagitis; F10.20 Alcohol dependence, uncomplicated; Z72.0 Tobacco use; Y90.6 Blood alcohol level of 120-199 mg/100 ml
CPT/HCPCS: 36415; 71046; 80048; 80061; 80076; 80307; 81001; 82550; 83690; 83735; 83880; 84443; 84484; 85025; 85379; 85610; 85730; 93005; 94640; 96361; 96365; 99285; G0480; J7120; J7613; 94664; G0479

== ENCOUNTER 2018-11-07 09:58 | Emergency (ER) | payer SELFPAY ==
[~2018-11-07 09:58] MED LIST changes: +RANI-376 PO
[2018-11-07 10:14] VITALS: BP 108/63
--- NOTE | 2018-11-07 10:24 | PHYS DOC ---
Past History Past Medical History: No Pertinent History Past Surgical History: No Surgical History Alcohol Use: None Drug Use: None Adult General Chief Complaint Chief Complaint: DENTAL PROBLEM HPI HPI Patient is a 28 year old male who presents with complaint of left-sided jaw pain. The patient states he was playing football with friends 2 days ago. States that during the game he was accidentally hit along the left side of his jaw. States since he was hit, he has been having worsening pain to the left side of his jaw. States that he is unable to fully open his mouth or chew on the left side of his mouth secondary to pain in the lower jaw. Denies any bleeding from the mouth or dental injury. Due to continued pain he came to the emergency department for evaluation as is concerned there could be a possible fracture. Has been taking aspirin as needed for pain with minimal relief. Denies any other injuries. Did not lose consciousness and denies headache, nausea, or difficulty with concentration or memory. Review of Systems Review of Systems Constitutional: Denies fever or chills [] Eyes: Denies change in visual acuity, redness, or eye pain [] HENT: Left jaw pain[] Respiratory: Denies cough or shortness of breath [] Cardiovascular: Denies chest pain or edema[] GI: Denies abdominal pain, nausea, vomiting, bloody stools or diarrhea [] : Denies dysuria or hematuria [] Musculoskeletal: Denies back pain or joint pain [] Integument: Denies rash or skin lesions [] Neurologic: Denies headache, focal weakness or sensory changes [] All other systems were reviewed and found to be within normal limits, except as documented in this note. Allergies Allergies Allergies Coded Allergies Type Severity Reaction Last Updated Verified No Known Drug Allergies 03/30/17 No Physical Exam Physical Exam Constitutional: Alert, afebrile, appears in mild discomfort. [] HENT: Normocephalic, atraumatic, bilateral external ears normal, limited jaw opening, direct tenderness to palpation along left mandibular alveolar process, no gingival ecchymosis, oropharynx moist, no oral exudates, nose normal. [] Eyes: PERRLA, EOMI, conjunctiva normal, no discharge. [] Neck: Normal range of motion, no tenderness, supple, no stridor. [] Cardiovascular:Heart rate regular rhythm, no murmur [] Lungs & Thorax: Bilateral breath sounds clear to auscultation [] Abdomen: Bowel sounds normal, soft, no tenderness, no masses, no pulsatile masses. [] Skin: Warm, dry, no erythema, no rash. [] Back: No tenderness, no CVA tenderness. [] Extremities: No tenderness, no cyanosis, no clubbing, ROM intact, no edema. [] Neurologic: Alert and oriented X 3, normal motor function, normal sensory function, no focal deficits noted. [] Current Patient Data Vital Signs Vital Signs Date Time Temp Pulse Resp B/P (MAP) Pulse Ox O2 Delivery O2 Flow Rate FiO2 11/07/18 10:14 98.4 52 18 100 Room Air EKG EKG Not performed Radiology/Procedures Radiology/[place] [address] IMAGING REPORT Signed PATIENT: ANDIE COX ACCOUNT: [id number] : 1990 LOCATION: ER AGE: 28 SEX: M EXAM STATUS: REG ER ORD. PHYSICIAN: ALEJO MONTGOMERY MD REASON: left sided jaw pain, hit in jaw hard playing football PROCEDURE: CT MAXILLOFACIAL WO CONTRAST EXAM: CT FACIAL BONES WITHOUT CONTRAST History: Left-sided jaw pain, hit hard playing football COMPARISON: None TECHNIQUE: Noncontrast images of the facial bones are performed. Coronal and sagittal reformatted images are also presented for interpretation. FINDINGS: The bilateral orbital globes appear intact. The retro-orbital moya are intact. There is mild displaced fracture of the left lateral pterygoid plate. The nasal bones appear intact. The paranasal sinuses are clear. IMPRESSION: Mild displaced fracture of the left lateral pterygoid plate. Electronically signed by: Crow Alfred MD (11/07/2018 11:25 AM) [id number] DICTATED AND SIGNED BY: CROW ALFRED MD DATE: 11/07/18 7932 CC: ALEJO MONTGOMERY MD; PCP,NO ~ [] Course & Med Decision Making Course & Med Decision Making Pertinent Labs and Imaging studies reviewed. (See chart for details) CT scan confirms a nondisplaced left pterygoid plate fracture. Advised patient to continue on soft diet. Prescribed hydrocodone elixir for pain. Referred to Dr. Bradford of oral maxillofacial surgery for follow-up in the next 5 days for reevaluation. Advised return to emergency department for any worsening s ymptoms. Patient was understanding and in agreement with treatment plan.[] Dragon Disclaimer Dragon Disclaimer This electronic medical record was generated, in whole or in part, using a voice recognition dictation system. Departure Departure: Impression: Primary Impression: Closed pterygoid plate fracture Disposition: HOME, SELF-CARE Condition: STABLE Referrals: PCPADILIA (PCP) DAVI BRADFORD DMD Patient Instructions: Facial Fracture Additional Instructions: Be sure to continue with soft diet until you have followed up with Dr. Bradford of oral maxillofacial surgery in the next 5 days. Return to the emergency department for any worsening symptoms. Scripts Hydrocodone Bit/Acetaminophen (HYDROCODONE-APAP 7.5-325/15 SOLN ) 15 Ml Solution 15 ML PO PRN Q6HRS PRN for PAIN, #300 ML 0 Refills Prov: ALEJO MONTGOMERY MD 11/07/18 ALEJO MONTGOMERY MD Nov 07, 2018 10:24
--- NOTE | 2018-11-07 11:29 | RAD ---
EXAM: CT FACIAL BONES WITHOUT CONTRAST History: Left-sided jaw pain, hit hard playing football COMPARISON: None TECHNIQUE: Noncontrast images of the facial bones are performed. Coronal and sagittal reformatted images are also presented for interpretation. FINDINGS: The bilateral orbital globes appear intact. The retro-orbital moya are intact. There is mild displaced fracture of the left lateral pterygoid plate. The nasal bones appear intact. The paranasal sinuses are clear. IMPRESSION: Mild displaced fracture of the left lateral pterygoid plate. Electronically signed by: Crow Alfred MD (11/07/2018 11:25 AM) [facility]
[2018-11-07] MEDS ORDERED: HYDR15SO6 PO (11:47)
== END 2018-11-07 11:52 | disposition home or self-care (01) ==
LOC: ER 09:58
DX: S02.19XA Other fracture of base of skull, initial encounter for closed fracture (principal); W21.01XA Struck by football, initial encounter; Y93.61 Activity, american tackle football; Y92.538 Other ambulatory health services establishments as the place of occurrence of the external cause; Y99.8 Other external cause status
CPT/HCPCS: 70486; 99284-25

== ENCOUNTER 2018-12-15 09:51 | Emergency (ER) | payer SELFPAY ==
[~2018-12-15] VITALS: Ht 160 cm; Wt 77.1 kg
[~2018-12-15 09:51] MED LIST changes: +HYDR15SO6 PO
[2018-12-15] MEDS ORDERED: FAMOTIDINE 20 MG/2 ML VIAL IVP ONE (10:00)
[2018-12-15] MEDS ORDERED: IV NORMAL SALINE 1,000ML 1,000 ML IV ONE (10:00)
[2018-12-15] MEDS ORDERED: ONDANSETRON PF 4 MG/2 ML VIAL. IV ONE (10:00)
[2018-12-15] MEDS ORDERED: KETOROLAC 15 MG/ML VIAL. IV ONE (10:00)
[2018-12-15 10:04] VITALS: BP 110/78
[2018-12-15] MEDS ORDERED: FAMO-63 PO (10:05)
[2018-12-15] MEDS ORDERED: ONDA4TAB12 PO (10:05)
--- NOTE | 2018-12-15 10:05 | PHYS DOC ---
Past History Past Medical History: No Pertinent History Past Surgical History: No Surgical History Smoking: Cigarettes Alcohol Use: None Drug Use: None Adult General Chief Complaint Chief Complaint: NAUSEA/VOMITING/DIARRHEA HPI HPI 28-year-old male presents with report of nausea and vomiting times one episode last night. Reports some associated diarrhea. Denies fever or chills. Denies known sick contacts. Reports some abdominal cramping discomfort which is now resolved. Patient reports he woke this morning and still did not feel well. Patient reports he works in [employer] and was concerned that he might spread his illness. Patient requesting work note for today. Review of Systems Review of Systems Constitutional: Denies fever or chills; reports generalized malaise Eyes: Denies redness or eye pain HENT: Denies nasal congestion or sore throat Respiratory: Denies cough or shortness of breath Cardiovascular: Denies chest pain or palpitations GI: Reports cramping abdominal pain, nausea, vomiting, and diarrhea : Denies dysuria or hematuria Musculoskeletal: Denies back pain or joint pain Integument: Denies rash or skin lesions Neurologic: Denies headache, focal weakness or sensory changes Complete systems were reviewed and found to be within normal limits, except as documented in this note. Current Medications Current Medications Current Medications Medications (Trade) Dose Ordered Sig/Yarelis Start Time Stop Time Status Last Admin Dose Admin Famotidine (Pepcid Vial) 20 mg 1X ONCE 12/15/18 10:00 12/15/18 10:01 UNV Ketorolac Tromethamine (Toradol 15mg Vial) 15 mg 1X ONCE 12/15/18 10:00 12/15/18 10:01 UNV Ondansetron HCl (Zofran) 4 mg 1X ONCE 12/15/18 10:00 12/15/18 10:01 UNV Sodium Chloride 1,000 ml @ 1,000 mls/hr 1X ONCE 12/15/18 10:00 12/15/18 10:59 UNV Allergies Allergies Allergies Coded Allergies Type Severity Reaction Last Updated Verified No Known Drug Allergies 03/30/17 No Physical Exam Physical Exam Constitutional: Well developed, well nourished, no acute distress, non-toxic appearance HENT: Normocephalic, atraumatic, oropharynx moist Eyes: PERRL, EOMI, conjunctiva normal, no discharge Neck: Normal range of motion, no tenderness, supple Cardiovascular: Heart rate normal, regular rhythm Lungs & Thorax: Bilateral breath sounds clear to auscultation, no wheezing Abdomen: Soft, no tenderness Skin: Warm, dry, no erythema, no rash Extremities: No tenderness, ROM intact, no edema Neurologic: Alert and oriented X 3, no focal deficits noted Psychologic: Affect normal, judgement normal, mood normal EKG EKG [] Radiology/Procedures Radiology/Procedures [] Course & Med Decision Making Course & Med Decision Making Patient presents with history of present illness and physical exam concerning for viral gastroenteritis. Patient reports vomiting has since stopped and has been able to tolerate by mouth liquids. Abdomen non-peritoneal. Symptomatic treatment provided with Zofran ODT and oral Pepcid. Patient advised to start with clear liquid diet and to advance as tolerated. Patient given a work note for today. Patient stable for discharge with outpatient follow-up with PCP. Discussed findings and plan with patient, who acknowledges understanding and agreement. Dragon Disclaimer Dragon Disclaimer This electronic medical record was generated, in whole or in part, using a voice recognition dictation system. Departure Departure: Impression: Primary Impression: Nausea & vomiting Additional Impression: Diarrhea Disposition: HOME, SELF-CARE Condition: STABLE Referrals: PCP,NO (PCP) Patient Instructions: Clear Liquid Diet, [id number], Diet for Diarrhea, Adult, Viral Gastroenteritis, [id number] Scripts Famotidine (PEPCID) 20 Mg Tablet 1 TAB PO BID for Gastritis, #10 TAB Prov: CHRISTOS BINGHAM DO 12/15/18 Ondansetron (ONDANSETRON ODT) 4 Mg Tab.rapdis 1 TAB PO PRN Q6-8HRS PRN for NAUSEA, #16 TAB Prov: CHRISTOS BINGHAM DO 12/15/18 Problem Qualifiers Primary Impression: Nausea & vomiting Vomiting type: unspecified Vomiting Intractability: non-intractable Qualified Codes: R11.2 - Nausea with vomiting, unspecified Additional Impression: Diarrhea Diarrhea type: unspecified type Qualified Codes: R19.7 - Diarrhea, unspecified CHRISTOS BINGHAM DO Dec 15, 2018 10:05
[2018-12-15] MEDS ORDERED: FAMOTIDINE 20 MG TABLET PO ONE (10:15)
[2018-12-15] MEDS ORDERED: ONDANSETRON ODT 4 MG TAB.RAPDIS PO ONE (10:15)
== END 2018-12-15 10:10 | disposition home or self-care (01) ==
LOC: ER 09:51
DX: R11.2 Nausea with vomiting, unspecified (principal); R19.7 Diarrhea, unspecified; R10.9 Unspecified abdominal pain; F17.210 Nicotine dependence, cigarettes, uncomplicated
CPT/HCPCS: 99283

== ENCOUNTER 2018-12-31 02:05 | Emergency (ER) | payer SELFPAY ==
[~2018-12-31] VITALS: Ht 160 cm; Wt 76.0 kg
[~2018-12-31 02:05] MED LIST changes: +FAMO-63 PO; +ONDA4TAB12 PO
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
[2018-12-31 02:45] LABS: BASO # 0.1 x10^3/uL (0.0-0.2); BASO % 1 % (0-3); EOS # 0.1 x10^3/uL (0.0-0.7); EOS % 1 % (0-3); HEMATOCRIT 47.7 % (39.0-53.0); HEMOGLOBIN 16.2 g/dL (13.0-17.5); LYMPH # 2.4 x10^3/uL (1.0-4.8); LYMPH % 25 % (24-48); MEAN CORPUSCULAR HEMOGLOBIN 32 pg (25-35); MEAN CORPUSCULAR HGB CONC 34 g/dL (31-37); MEAN CORPUSCULAR VOLUME 94 fL (79-100); MONO # 0.3 x10^3/uL (0.0-1.1); MONO % 4 % (0-9); NEUT # 6.6 x10^3uL (1.8-7.7); NEUT % 69 % (31-73); PLATELET COUNT 284 x10^3/uL (140-400); RED BLOOD COUNT 5.09 x10^6/uL (4.30-5.70); RED CELL DISTRIBUTION WIDTH 13.2 % (11.5-14.5); WHITE BLOOD COUNT 9.5 x10^3/uL (4.0-11.0)
[2018-12-31 02:48] LABS: BARBITURATES NEG (NEG); BENZODIAZEPINES NEG (NEG); CANNABINOIDS NEG (NEG); COCAINE NEG (NEG); METHADONE NEG (NEG); OPIATES NEG (NEG); PHENCYCLIDINE NEG (NEG)
[2018-12-31 02:52] LABS: BACTERIA,URINE FEW /HPF (0-FEW); BILIRUBIN,URINE NEG (NEG); CLARITY,URINE CLEAR; COLOR,URINE STRAW; GLUCOSE,URINE NEG (NEG); NITRITE,URINE NEG (NEG); RBC,URINE OCC /HPF (0-2); UROBILINOGEN,URINE 0.2 mg/dL (0.2 mg/dL); WBC,URINE OCC /HPF (0-4)
[2018-12-31 02:53] LABS: AMPHETAMINE/METHAMPHETAMINE NEG (NEG)
[2018-12-31 02:54] LABS: ALBUMIN 4.5 g/dL (3.4-5.0); ALBUMIN/GLOBULIN RATIO 1.1 (1.0-1.7); CALCIUM 9.2 mg/dL (8.5-10.1); POTASSIUM 3.9 mmol/L (3.5-5.1); TOTAL BILIRUBIN 0.3 mg/dL (0.2-1.0); TOTAL PROTEIN 8.5 g/dL (6.4-8.2)
--- NOTE | 2018-12-31 03:15 | RAD ---
CT head without contrast and CT cervical spine without contrast dated 12/31/2018. No comparison available. Clinical data indication: Pain after injury. TECHNIQUE: Contiguous axial imaging the head was performed from skull base to vertex. In addition, axial imaging the cervical spine acquired with thin cut coronal and sagittal reconstruction. One or more of the following individualized dose reduction techniques were utilized for this examination: 1. Automated exposure control 2. Adjustment of the mA and/or kV according to patient size 3. Use of iterative reconstruction technique FINDINGS: Ventricles and sulci are within normal limits for age. No midline shift or mass effect. Brain parenchyma is of normal attenuation. No hemorrhage or extra-axial collection. Posterior fossa and brainstem unremarkable. There is a focal scalp hematoma posteriorly on the right. No underlying fracture. Visualized paranasal sinuses and mastoid air cells are clear. Images of the cervical spine acquired from skull base to T2. Sagittal alignment is anatomic. Vertebral body heights are maintained. No prevertebral soft tissue swelling. Posterior elements are intact. No evidence of fracture. Mild endplate hypertrophic changes throughout with mild multilevel uncovertebral spurring. No apparent focal disc herniation. The bony canal and foramen are adequate. Limited images of lung apices are clear. No significant soft tissue abnormality. IMPRESSION HEAD: 1. No evidence of acute intracranial hemorrhage or mass. 2. Posterior right scalp hematoma with no evidence of underlying fracture. Impression cervical spine: 1. No evidence of cervical spine fracture or malalignment. 2. Mild multilevel spondylosis. 3. There is a nondisplaced fracture through the left mandibular ramus/coronoid process, age indeterminate but possibly subacute. Correlate clinically. There is a small oblique fracture through the coronoid process and ramus of left mandible. This may be subacute. The visualized portions of the right mandible are intact. Electronically signed by: Umer Hernandez MD (12/31/2018 3:12 AM) [facility]
--- NOTE | 2018-12-31 03:16 | RAD ---
Single view pelvis and two-view right hip dated 12/31/2018. No comparison available. Clinical data indication: Pain after injury. FINDINGS: AP view pelvis shows normal bony alignment. No displaced fracture. No acute osseous or articular abnormality. 2 views right hip show normal bony alignment. No displaced fracture. No periostitis or bone destruction. IMPRESSION: No acute radiographic abnormality. Electronically signed by: Umer Hernandez MD (12/31/2018 3:13 AM) [facility]
[2018-12-31 03:40] VITALS: BP 123/78
[2018-12-31] MEDS ORDERED: HYDR-3165 PO (03:44)
[2018-12-31] MEDS ORDERED: KETOROLAC 30 MG/ML VIAL. IV ONE (03:45)
== END 2018-12-31 03:50 | disposition home or self-care (01) ==
LOC: EEVIPCON 02:05 → ER 02:05
DX: S01.01XA Laceration without foreign body of scalp, initial encounter (principal); M25.551 Pain in right hip; M54.5 Low back pain; F17.210 Nicotine dependence, cigarettes, uncomplicated; Y08.89XA Assault by other specified means, initial encounter; Y93.01 Activity, walking, marching and hiking; Y92.488 Other paved roadways as the place of occurrence of the external cause; Y99.8 Other external cause status
CPT/HCPCS: 12001; 36415; 70450; 72125; 73502; 80053; 80307; 81001; 85025; 96374; 99285; J1885

== ENCOUNTER 2019-01-12 11:48 | Emergency (ER) | payer SELFPAY ==
[~2019-01-12] VITALS: Ht 170.2 cm; Wt 79.4 kg
[~2019-01-12 11:48] MED LIST changes: +HYDR-3165 PO
[2019-01-12 11:58] VITALS: BP 115/69
--- NOTE | 2019-01-12 12:03 | NUR ---
1200 : 4 noris removed w/ staple remover. DOMINICK Nelson/MARIE
--- NOTE | 2019-01-13 06:08 | PHYS DOC ---
Past History Past Medical History: No Pertinent History Past Surgical History: No Surgical History Smoking: Cigarettes Alcohol Use: Occasionally Drug Use: None Adult General Chief Complaint Chief Complaint: SUTURE/STAPLE REMOVAL [facility] 28-year-old male presents for staple removal. I placed 4 noris in the right side of the patient's scalp several days ago. He is returning today for removal. He's had no complications. He has no other complaints Review of Systems Review of Systems Constitutional: Denies fever or chills [] Eyes: Denies change in visual acuity, redness, or eye pain [] HENT: Denies nasal congestion or sore throat [] Respiratory: Denies cough or shortness of breath [] Cardiovascular: No additional information not addressed in [facility] [] GI: Denies abdominal pain, nausea, vomiting, bloody stools or diarrhea [] : Denies dysuria or hematuria [] Musculoskeletal: Denies back pain or joint pain [] Integument: Noris on the right side of the scalp[] Neurologic: Denies headache, focal weakness or sensory changes [] Endocrine: Denies polyuria or polydipsia [] All other systems were reviewed and found to be within normal limits, except as documented in this note. Allergies Allergies Allergies Coded Allergies Type Severity Reaction Last Updated Verified No Known Drug Allergies 03/30/17 No Physical Exam Physical Exam Constitutional: Well developed, well nourished, no acute distress, non-toxic appearance. [] HENT: Normocephalic, atraumatic, bilateral external ears normal, oropharynx moist, no oral exudates, nose normal. [] Eyes: PERRLA, EOMI, conjunctiva normal, no discharge. [] Neck: Normal range of motion, no tenderness, supple, no stridor. [] Cardiovascular:Heart rate regular rhythm, no murmur [] Lungs & Thorax: Bilateral breath sounds clear to auscultation [] Abdomen: Bowel sounds normal, soft, no tenderness, no masses, no pulsatile masses. [] Skin: 4 noris in the right side of the scalp, with skin healing, no signs of infection[] Back: No tenderness, no CVA tenderness. [] Extremities: No tenderness, no cyanosis, no clubbing, ROM intact, no edema. [] Neurologic: Alert and oriented X 3, normal motor function, normal sensory function, no focal deficits noted. [] Psychologic: Affect normal, judgement normal, mood normal. [] Current Patient Data Vital Signs Vital Signs Date Time Temp Pulse Resp B/P (MAP) Pulse Ox O2 Delivery O2 Flow Rate FiO2 01/12/19 11:58 98.1 87 18 100 Room Air EKG EKG [] Radiology/Procedures Radiology/Procedures [] Course & Med Decision Making Course & Med Decision Making Pertinent Labs and Imaging studies reviewed. (See chart for details) The patient's noris were removed without incident. He is stable for discharge at this time. [] Dragon Disclaimer Dragon Disclaimer This electronic medical record was generated, in whole or in part, using a voice recognition dictation system. Departure Departure: Impression: Primary Impression: Encounter for staple removal Disposition: 01 HOME, SELF-CARE Condition: STABLE Patient Instructions: Staple Removal, Care After PENG CANCINO DO Jan 13, 2019 06:08
== END 2019-01-12 12:03 | disposition home or self-care (01) ==
LOC: ER 11:48
DX: S01.01XD Laceration without foreign body of scalp, subsequent encounter (principal); F17.210 Nicotine dependence, cigarettes, uncomplicated; X58.XXXD Exposure to other specified factors, subsequent encounter
CPT/HCPCS: 99281